=== PATIENT | male | born 1980 | race African-American/Black ===

== ENCOUNTER 2020-04-01 16:50 | Emergency (ER) | payer OTHER ==
[~2020-04-01] VITALS: Ht 172.7 cm; Wt 140.9 kg
[2020-04-01 16:55] VITALS: BP 135/91
[2020-04-01] MEDS ORDERED: IBUPROFEN 600 MG TABLET PO ONE (17:45)
== END 2020-04-01 19:07 | disposition home or self-care (01) ==
LOC: EMS 16:51
DX: S83.91XA Sprain of unspecified site of right knee, initial encounter (principal); F17.210 Nicotine dependence, cigarettes, uncomplicated; I10 Essential (primary) hypertension; X58.XXXA Exposure to other specified factors, initial encounter; Y93.89 Activity, other specified; Y92.89 Other specified places as the place of occurrence of the external cause; Y99.0 Civilian activity done for income or pay
CPT/HCPCS: 99406